=== PATIENT | male | born 1955 | race Caucasian/White ===

== ENCOUNTER 2016-11-13 20:17 | Emergency (ER) | payer MEDICARE, MEDICAID ==
[2016-11-13 20:38] VITALS: BP 129/73
[2016-11-13] MEDS ORDERED: Azithromycin 500 MG Tab ONE (20:45)
--- NOTE | 2016-11-28 11:04 | EDM.PDOC ---
ED HPI GENERAL MEDICAL PROBLEM - General Chief Complaint: General Stated Complaint: POSSIBLE PNEUMONIA Time Seen by Provider: 11/13/16 20:20 Source of Information: Reports: Patient History Limitations: Reports: No Limitations - History of Present Illness INITIAL COMMENTS - FREE TEXT/NARRATIVE: This is a 61yo M here for complaints of chest congestion and cough. Patient states he feels like he may have pneumonia. Denies any fever or chills. No sob. No CP. Onset: Gradual Duration: Day(s): Location: Reports: Chest Quality: Reports: Same as Previous Episode Severity: Mild Improves with: Reports: None Worsens with: Reports: None Associated Symptoms: Reports: Cough - Related Data Allergies Allergy/AdvReac Type Severity Reaction Status Date / Time clindamycin Allergy Other Verified 11/13/16 20:36 methadone Allergy Other Verified 11/13/16 20:36 methocarbamol [From Robaxin] Allergy Other Verified 11/13/16 20:36 Penicillins Allergy Other Verified 11/13/16 20:36 propoxyphene Allergy Other Verified 11/13/16 20:36 Home Meds: Home Meds Celecoxib [CeleBREX] 200 mg PO DAILY 04/23/15 [History] Hydrocodone/Acetaminophen [Hydrocodon-Acetaminoph 7.5-325] 1 tab PO Q8H PRN 09/27 [History] Past Medical History HEENT History: Reports: Hard of Hearing, Impaired Vision Musculoskeletal History: Reports: Arthritis, Back Pain, Chronic - Infectious Disease History Infectious Disease History: Reports: Chicken Pox, Measles, Mumps, Rubella - Past Surgical History HEENT Surgical History: Reports: Adenoidectomy, Tonsillectomy Musculoskeletal Surgical History: Reports: Other (See Below) Other Musculoskeletal Surgeries/Procedures:: R foot surgery r/t Fx in 2007 Social & Family History - Family History Family Medical History: Noncontributory - Tobacco Use Smoking Status *Q: Current Every Day Smoker Years of Tobacco use: 52 Packs/Tins Daily: 1.5 Used Tobacco, but Quit: No Second Hand Smoke Exposure: No - Caffeine Use Caffeine Use: Reports: Coffee, Soda - Recreational Drug Use Recreational Drug Use: No ED ROS GENERAL - Review of Systems Review Of Systems: ROS reveals no pertinent complaints other than HPI. ED EXAM, GENERAL - Physical Exam Exam: See Below Exam Limited By: No Limitations General Appearance: Alert, WD/WN, No Apparent Distress Eye Exam: Bilateral Eye: EOMI, PERRL Ears: Normal External Exam Nose: Normal Inspection Throat/Mouth: Normal Inspection Head: Atraumatic, Normocephalic Neck: Normal Inspection Respiratory/Chest: No Respiratory Distress, Decreased Breath Sounds, Rhonchi Cardiovascular: Normal Peripheral Pulses GI/Abdominal: Normal Bowel Sounds Back Exam: Normal Inspection Extremities: Normal Inspection Neurological: Alert, Oriented, CN II-XII Intact Psychiatric: Normal Affect, Normal Mood Skin Exam: Warm, Dry, Intact Course - Vital Signs Last Recorded V/S: Last Vital Signs Temp 36.9 C 11/13/16 20:39 Pulse 87 11/13/16 20:39 Resp 16 11/13/16 20:39 BP 129/73 11/13/16 20:39 Pulse Ox 95 11/13/16 20:39 - Orders/Labs/Meds Meds: Medications Discontinued Medications Generic Name Dose Route Start Last Admin Trade Name Esther PRN Reason Stop Dose Admin Azithromycin 3,000 mg 11/13/16 20:45 Zithromax .ROUTE 11/13/16 20:46 .STK-MED ONE Departure - Departure Time of Disposition: 21:00 Disposition: Home, Self-Care 01 Condition: good Clinical Impression: Cough, Chest congestion - Discharge Information Instructions: Azithromycin tablets, Upper Respiratory Infection, Adult, Easy-to -Read Referrals: PCP,None [Primary Care Provider] - Forms: ED Department Discharge Additional Instructions: Begin taking prescribed Azithromycin (antibiotic) as directed: 2 tablets by mouth today, and then 1 tablet daily for the next 4 days until all are gone. Follow up in clinic with regular provider if symptoms worsen, or persist. Plenty of fluids and plenty of rest. Call with any questions. - Problem List Review Problem List Initiated/Reviewed/Updated: Yes - Assessment/Plan Plan: Patient counseled on supportive care and antibiotics use and f/u in clinic if symptoms persist. Discussed f/u in ER or clinic if symptoms worsen.
== END 2016-11-13 20:53 | disposition home or self-care (01) ==
LOC: LB.ED 20:17
DX: R05 Cough (principal); R09.89 Other specified symptoms and signs involving the circulatory and respiratory systems; Z88.0 Allergy status to penicillin; Z88.1 Allergy status to other antibiotic agents; Z91.09 Other allergy status, other than to drugs and biological substances; F17.210 Nicotine dependence, cigarettes, uncomplicated
CPT/HCPCS: 99283; A9270; 99282